=== PATIENT | male | born 1990 | race African-American/Black ===

== ENCOUNTER 2016-11-16 10:57 | Emergency (ER) | payer OTHER ==
[~2016-11-16] VITALS: Ht 203.2 cm; Wt 122.3 kg
[2016-11-16 11:00] VITALS: TEMP 98.2
[2016-11-16] MEDS ORDERED: ROXICODONE 55 MG/TAB PO (12:13)
[2016-11-16] MEDS ORDERED: NAPROSYN 2250 MG/TAB PO (12:13)
[2016-11-16] MEDS ORDERED: PREDNISONE10 MG PO (12:13)
[2016-11-16 12:21] VITALS: BP 128/73; PULSE 72
== END 2016-11-16 12:22 | disposition home or self-care (01) ==
LOC: COL.ER 10:57
DX: R51 Headache (principal)
CPT/HCPCS: J1885

== ENCOUNTER 2016-12-18 04:43 | Emergency (ER) | payer SELFPAY ==
[~2016-12-18] VITALS: Ht 203.2 cm; Wt 120.5 kg
[~2016-12-18 04:43] MED LIST: NAPROSYN 2250 MG/TAB PO; PREDNISONE10 MG PO; ROXICODONE 55 MG/TAB PO
[2016-12-18 04:46] VITALS: TEMP 98.1
[2016-12-18 05:52] LABS: BASO # 0.1 (0.0-0.2); BASO % 0.7 % (0.0-2.0); EOS # 0.2 (0.0-0.7); EOS % 2.5 % (0-4.0); GRAN # 6.8 (1.4-6.5); GRAN % 76.7 % (42.2-75.2); HEMATOCRIT 43.2 % (42.0-52.0); HEMOGLOBIN 13.9 g/dl (13.5-18.0); LYMPH % 11.5 % (20.0-51.0); MEAN CELL VOLUME 82 fl (80.0-100.0); MEAN CORPUSCULAR HEMOGLOBIN 27 pg (27.0-31.0); MEAN CORPUSCULAR HGB CONC 32 g/dl (33.0-37.0); MEAN PLATELET VOLUME 10.9 fl (7.4-10.4); MONO # 0.7 (0.1-0.6); MONO % 8.3 % (1.7-9.3); PLATELET COUNT 184 K/mm3 (130-400); RED BLOOD COUNT 5.25 M/mm3 (4.20-5.60); REDCELL DISTRIBUTION WIDTH-CV 14.2 % (11.5-14.5); WHITE BLOOD COUNT 8.9 K/mm3 (4.8-10.8)
[2016-12-18 06:06] LABS: ADJUSTED CALCIUM 9.2 mg/dL (8.4-10.2); ALANINE AMINOTRANSFERASE 45 U/L (21-72); ALKALINE PHOSPHATASE 52 U/L (50-136); ANION GAP 8 mmol/L (7-16); BILIRUBIN,TOTAL 1.3 mg/dL (0.0-1.0); BLOOD UREA NITROGEN 12 mg/dL (9-20); CALCIUM 9.2 mg/dL (8.4-10.2); CARBON DIOXIDE 27 mmol/L (22-30); CHLORIDE 101 mmol/L (98-107); CREATININE, serum 1.13 mg/dL (0.66-1.25); GLUCOSE 100 mg/dL (74-106); POTASSIUM 4.4 mmol/L (3.4-5.0); SODIUM 137 mmol/L (137-145); TOTAL PROTEIN 7.1 gm/dL (6.4-8.2)
[2016-12-18 06:10] LABS: INR 1.1 (0.8-3.0)
[2016-12-18 06:18] LABS: TROPONIN-I < 0.012 ng/mL (0.000-0.034)
[2016-12-18] MEDS ORDERED: LOPRESSOR 225 MG/TAB PO (06:44)
[2016-12-18 07:00] VITALS: BP 125/67; PULSE 73
[2016-12-18 07:26] LABS: AMPHETAMINE URINE NEGATIVE; BARBITURATES URINE NEGATIVE; BENZODIAZEPINES URINE NEGATIVE; BUPRENORPHINE URINE NEGATIVE; METHADONE URINE NEGATIVE; OPIATES URINE NEGATIVE; OXYCODONE URINE NEGATIVE; PHENCYCLIDINE URINE NEGATIVE; PROPOXYPHENE URINE NEGATIVE; THC CANNABINOIDS URINE POSITIVE
== END 2016-12-18 07:01 | disposition home or self-care (01) ==
LOC: COL.ER 04:43
PROVIDERS: Emergency Medicine
DX: R00.2 Palpitations (principal)
CPT/HCPCS: J7040